=== PATIENT | female | born 1970 | race Caucasian/White ===

== ENCOUNTER → 2018-08-31 | Outpatient (CLI) | payer BC | END | disposition home or self-care (01) | LOC: CFH 10:25 | PROVIDERS: ATTEND Family Medicine | DX: D17.39 Benign lipomatous neoplasm of skin and subcutaneous tissue of other sites (principal); N63.20 Unspecified lump in the left breast, unspecified quadrant; Z80.3 Family history of malignant neoplasm of breast | CPT/HCPCS: 76641; 77066; G0279 ==